=== PATIENT | male | born 1995 | race Caucasian/White ===

== ENCOUNTER 2016-10-29 17:43 | Emergency (ER) | payer MEDICAID, OTHER ==
[~2016-10-29] VITALS: Ht 182.9 cm; Wt 72.7 kg
[2016-10-29] MEDS ORDERED: DiphenhydrAMINE HCL 50 MG/ML VIAL IM ONE (18:15)
[2016-10-29] MEDS ORDERED: LORazepam 2 MG/ML VIAL IM ONE (18:15)
[2016-10-29] MEDS ORDERED: HALOPERIDOL LACTATE 5 MG/ML VIAL IM ONE (18:15)
[2016-10-29 18:28] LABS: BASOPHILS % (AUTO) 0.7 % (0.0-2.0); EOSINOPHILS % (AUTO) 0.5 % (1.0-6.0); HEMATOCRIT 43.3 % (41-53); HEMOGLOBIN 14.2 g/dL (13.5-17.5); MEAN CORPUSCULAR HEMOGLOBIN 28.7 pg (26.0-34.0); MEAN CORPUSCULAR HGB CONC 32.8 G/dL (31.0-37.0); MEAN CORPUSCULAR VOLUME 88 fL (80-100); MONOCYTES # (AUTO) 0.7 K/uL (0.1-1.0); MONOCYTES % (AUTO) 6.1 % (2.0-9.0); NEUTROPHILS # (AUTO) 6.6 K/uL (1.8-7.7); NEUTROPHILS % (AUTO) 57.7 % (40.0-70.0); PLATELET COUNT (AUTO) 338 K/uL (150-450); RED BLOOD CELL COUNT(AUTO) 4.94 MIL/uL (4.50-5.90); RED CELL DISTRIBUTION WIDTH 14.4 % (11.5-14.5); WHITE BLOOD COUNT (AUTO) 11.4 K/uL (4.5-11.0)
[2016-10-29 18:37] LABS: ANION GAP 14 mmol/L (8-16); CALCIUM, TOTAL 8.5 mg/dL (8.8-10.5); CARBON DIOXIDE 23 mmol/L (22-29); CHLORIDE 108 mmol/L (98-107); CREATININE 0.94 mg/dL (0.60-1.30); GLOMERULAR FILTR. RATE CALC > 60 mL/min (>60); POTASSIUM 3.7 mmol/L (3.5-5.1); SODIUM SERUM 145 mmol/L (136-145); UREA NITROGEN, BLOOD 11 mg/dL (7-18)
[2016-10-29 18:43] LABS: ALANINE AMINOTRANSFERASE 38 U/L (12-78); ASPARTATE AMINOTRANSFERASE 21 U/L (15-37); BILIRUBIN,TOTAL 0.4 mg/dL (0.1-1.0); TOTAL PROTEIN, SERUM 7.3 g/dL (6.4-8.2)
[2016-10-30 04:30] VITALS: BP 118/73
== END 2016-10-30 05:12 | disposition home or self-care (01) ==
LOC: EMS 17:45
DX: F10.10 Alcohol abuse, uncomplicated (principal); F20.9 Schizophrenia, unspecified; Y90.7 Blood alcohol level of 200-239 mg/100 ml
CPT/HCPCS: 36415; 80053; 80307; 85025; 96372; 99284; G0480; J1200; J1630; J2060

== ENCOUNTER 2020-09-28 12:59 | Inpatient (IN) | payer MEDICAID, OTHER ==
[~2020-09-28] VITALS: Ht 182.9 cm; Wt 77.7 kg
[2020-09-28 13:52] LABS: BASOPHILS % (AUTO) 0.3 % (0.0-2.0); EOSINOPHILS % (AUTO) 0.3 % (1.0-6.0); HEMATOCRIT 41.2 % (41-53); HEMOGLOBIN 13.4 g/dL (13.5-17.5); LYMPHOCYTES # (AUTO) 2.5 K/uL (1.0-4.8); LYMPHOCYTES % (AUTO) 33.4 % (22.0-44.0); MEAN CORPUSCULAR HEMOGLOBIN 28.6 pg (26.0-34.0); MEAN CORPUSCULAR HGB CONC 32.4 G/dL (31.0-37.0); MEAN CORPUSCULAR VOLUME 88 fL (80-100); MONOCYTES # (AUTO) 0.5 K/uL (0.1-1.0); MONOCYTES % (AUTO) 7.4 % (2.0-9.0); NEUTROPHILS # (AUTO) 4.4 K/uL (1.8-7.7); NEUTROPHILS % (AUTO) 58.6 % (40.0-70.0); PLATELET COUNT (AUTO) 269 K/uL (150-450); RED BLOOD CELL COUNT(AUTO) 4.68 MIL/uL (4.50-5.90); RED CELL DISTRIBUTION WIDTH 13.6 % (11.5-14.5)
[2020-09-28 14:27] LABS: ANION GAP 5 mmol/L (8-16); CALCIUM, TOTAL 8.5 mg/dL (8.8-10.5); CARBON DIOXIDE 29 mmol/L (22-29); CHLORIDE 105 mmol/L (98-107); CREATININE 0.77 mg/dL (0.60-1.30); GLOMERULAR FILTR. RATE CALC > 60 mL/min (>60); GLUCOSE,RANDOM 68 mg/dL (70-110); SODIUM SERUM 139 mmol/L (136-145); UREA NITROGEN, BLOOD 13 mg/dL (7-18)
[2020-09-28 14:36] LABS: ALANINE AMINOTRANSFERASE 43 U/L (12-78); ALBUMIN 3.6 g/dL (3.4-5.0); ALKALINE PHOSPHATASE 66 U/L (46-116); ASPARTATE AMINOTRANSFERASE 23 U/L (15-37); BILIRUBIN,TOTAL 0.3 mg/dL (0.1-1.0); TOTAL PROTEIN, SERUM 6.7 g/dL (6.4-8.2)
[2020-09-28 15:06] LABS: AMPHET/METH SCREEN,URINE NEGATIVE (NEGATIVE); BARBITURATE SCREEN, URINE NEGATIVE (NEGATIVE); BENZODIAZEPINES SCREEN,URINE NEGATIVE (NEGATIVE); CANNABINOID SCREEN,URINE NEGATIVE (NEGATIVE); COCAINE SCREEN,URINE NEGATIVE (NEGATIVE); METHADONE SCREEN, URINE NEGATIVE (NEGATIVE); OPIATE SCREEN,URINE NEGATIVE (NEGATIVE)
[2020-09-28 15:08] LABS: PHENCYCLIDINE SCREEN,URINE NEGATIVE (NEGATIVE)
[2020-09-28] MEDS ORDERED: ZOLPIDEM TARTRATE 10 MG TABLET PO PRN (16:30)
[2020-09-28 18:09] LABS: COVID AG,FIA SOURCE NASOPHARYNGEAL
[2020-09-28] MEDS ORDERED: HALOPERIDOL 5 MG TABLET PO ONE (19:00)
[2020-09-28] MEDS ORDERED: LORazepam 2 MG TABLET PO ONE (19:00)
[2020-09-29] MEDS: OLANZapine 5 MG TABLET PO SCH ×3 (00:07→16:19)
[2020-09-29 00:41] VITALS: BP 143/89
[2020-09-29] MEDS ORDERED: GuaiFENesin/D-METHORPHAN [SUGAR-FREE] 200-20MG/10 ML SYRUP UDCUP PO PRN (07:45)
[2020-09-29] MEDS ORDERED: PETROLATUM,WHITE 28 GM JELLY TP PRN (07:45)
[2020-09-29] MEDS ORDERED: DOCUSATE SODIUM 100 MG CAPSULE PO PRN (07:45)
[2020-09-29] MEDS ORDERED: MAGNESIUM HYDROXIDE SUSPENSION 30 ML UDCUP PO PRN (07:45)
[2020-09-29] MEDS ORDERED: IBUPROFEN 400 MG TABLET PO PRN (07:45)
[2020-09-29] MEDS ORDERED: CloNIDine HCL 0.1 MG TABLET PO PRN (07:45)
[2020-09-29] MEDS ORDERED: LOPERAMIDE HCL 2 MG CAPSULE PO PRN (07:45)
[2020-09-29] MEDS ORDERED: ONDANSETRON HCL 4 MG TABLET PO PRN (07:45)
[2020-09-29] MEDS ORDERED: ALBUTEROL SULFATE HFA 90 MCG/PUFF 8 GM INHALER IH PRN (07:45)
[2020-09-29] MEDS ORDERED: ACETAMINOPHEN 325 MG TABLET PO PRN (07:45)
[2020-09-29] MEDS ORDERED: MAG HYDROX/AL HYDROX/SIMETH ES 30 ML SUSPENSION UDCUP PO PRN (07:45)
[2020-09-29] MEDS ORDERED: NICOTINE 14 MG/24 HOUR PATCH TD PRN (07:45)
[2020-09-29 08:26] VITALS: BP 135/89
[2020-09-29] MEDS: LORazepam 2 MG TABLET PO PRN ×2 (09:06→16:19)
[2020-09-29] MEDS: HALOPERIDOL 5 MG TABLET PO PRN (09:06)
[2020-09-30 08:33] VITALS: BP 135/81
[2020-09-30] MEDS: OLANZapine 5 MG TABLET PO SCH (08:43)
[2020-09-30 16:16] VITALS: BP 131/79
[2020-09-30] MEDS: OLANZapine 10 MG TABLET PO SCH (16:17)
[2020-10-01 04:21] VITALS: BP 128/76
[2020-10-01 08:40] VITALS: BP 111/71
[2020-10-01] MEDS: OLANZapine 10 MG TABLET PO SCH ×2 (09:34→16:48)
[2020-10-01 16:07] VITALS: BP 125/72
[2020-10-01] MEDS: LORazepam 2 MG TABLET PO PRN (16:48)
[2020-10-02 05:44] VITALS: BP 119/71
[2020-10-02 08:05] VITALS: BP 108/62
[2020-10-02] MEDS: LORazepam 2 MG TABLET PO PRN ×2 (08:55→17:09)
[2020-10-02] MEDS: OLANZapine 10 MG TABLET PO SCH ×2 (08:55→17:09)
[2020-10-02 16:00] VITALS: BP 106/68
[2020-10-03 02:50] VITALS: BP 110/72
[2020-10-03 08:05] VITALS: BP 111/63
[2020-10-03] MEDS: OLANZapine 10 MG TABLET PO SCH ×2 (08:58→16:54)
[2020-10-03] MEDS: LORazepam 2 MG TABLET PO PRN ×2 (08:58→16:54)
[2020-10-03 16:11] VITALS: BP 117/67
[2020-10-04 08:14] VITALS: BP 119/72
[2020-10-04] MEDS: OLANZapine 10 MG TABLET PO SCH (09:05)
[2020-10-04 16:07] VITALS: BP 114/62
[2020-10-04] MEDS: OLANZapine 7.5 MG TABLET PO SCH (16:27)
[2020-10-04] MEDS: LORazepam 2 MG TABLET PO PRN (16:27)
[2020-10-05 06:08] VITALS: BP 117/61
[2020-10-05 08:57] VITALS: BP 133/79
[2020-10-05] MEDS: MULTIVITAMINS WITH MINERALS, THERAPEUTIC TABLET PO SCH (08:59)
[2020-10-05] MEDS: OLANZapine 7.5 MG TABLET PO SCH ×2 (08:59→16:39)
[2020-10-05 16:38] VITALS: BP 110/62
[2020-10-06 05:21] VITALS: BP 120/66
[2020-10-06] MEDS: OLANZapine 7.5 MG TABLET PO SCH ×2 (08:22→16:43)
[2020-10-06] MEDS: MULTIVITAMINS WITH MINERALS, THERAPEUTIC TABLET PO SCH (08:22)
[2020-10-06 10:55] VITALS: BP 106/54
[2020-10-06 16:22] VITALS: BP 126/63
[2020-10-07] MEDS: OLANZapine 7.5 MG TABLET PO SCH ×2 (09:31→17:30)
[2020-10-07] MEDS: MULTIVITAMINS WITH MINERALS, THERAPEUTIC TABLET PO SCH (09:31)
[2020-10-07 16:36] VITALS: BP 112/64
[2020-10-07] MEDS: LORazepam 2 MG TABLET PO PRN (17:30)
[2020-10-08 04:20] VITALS: BP 113/69
[2020-10-08] MEDS: OLANZapine 7.5 MG TABLET PO SCH ×2 (09:52→16:35)
[2020-10-08] MEDS: LORazepam 2 MG TABLET PO PRN (09:52)
[2020-10-08] MEDS: MULTIVITAMINS WITH MINERALS, THERAPEUTIC TABLET PO SCH (09:52)
[2020-10-08 17:21] VITALS: BP 110/64
[2020-10-09] MEDS: OLANZapine 7.5 MG TABLET PO SCH ×2 (09:00→17:05)
[2020-10-09] MEDS: MULTIVITAMINS WITH MINERALS, THERAPEUTIC TABLET PO SCH (09:00)
[2020-10-09 16:30] VITALS: BP 127/72
[2020-10-10 08:21] VITALS: BP 129/66
[2020-10-10] MEDS: MULTIVITAMINS WITH MINERALS, THERAPEUTIC TABLET PO SCH (09:31)
[2020-10-10] MEDS: OLANZapine 7.5 MG TABLET PO SCH ×2 (09:31→17:51)
[2020-10-10 17:15] VITALS: BP 100/72
[2020-10-10] MEDS: HALOPERIDOL 5 MG TABLET PO PRN (17:54)
[2020-10-11] MEDS ORDERED: OLAN7.5T2 PO (08:27)
[2020-10-11 08:38] VITALS: BP 140/65
[2020-10-11] MEDS: HALOPERIDOL 5 MG TABLET PO PRN (09:09)
[2020-10-11] MEDS: OLANZapine 7.5 MG TABLET PO SCH (09:09)
[2020-10-11] MEDS: MULTIVITAMINS WITH MINERALS, THERAPEUTIC TABLET PO SCH (09:09)
== END 2020-10-11 09:50 | disposition other institution (70) | DRG 750 ==
LOC: EMS 13:04 → B3A 16:19
PROVIDERS: ADMIT Psychiatry & Neurology Psychiatry; ATTEND Psychiatry & Neurology Psychiatry
DX: F20.0 Paranoid schizophrenia (principal); Z59.0 Homelessness; D64.9 Anemia, unspecified; E16.2 Hypoglycemia, unspecified; Z20.822 Contact with and (suspected) exposure to COVID-19
CPT/HCPCS: 87426; 99285; G0480